=== PATIENT | male | born 1980 | race Caucasian/White ===

== ENCOUNTER 2016-11-12 20:42 | Emergency (ER) | payer MEDICARE ==
[2016-11-12] MEDS ORDERED: HYDROcodone/Acetaminophen 5/325 mg Tablet ONE (21:34)
[2016-11-12] MEDS ORDERED: Amoxicillin/Potassium Clav 875 MG TAB ONE (21:37)
--- NOTE | 2016-11-12 22:02 | PICIS ---
[facility] EMERGENCY RECORD TRIAGE (20:58 BHAS) PATIENT: NAME: Keyon Wang, AGE: 36, GENDER: male, : SatApr 07, 1980, TIME OF GREET: SatNov 12, 2016 20:43, PREFERRED LANGUAGE: Hungarian, RACE: WHITE, ETHNICITY: Not or , ECODE BILLING MAP: [facility] ER, SSN: [id number], Zip Code: [address], KG WEIGHT: [phone], PHONE: , , , PERSON ID: [id number], PCP: Garrett Driscoll, /Remi. (20:58 AS) TRIAGE NOTES: Facial/head pain x 1 week. Started augementin today for sinus infection. (20:58 BHAS) COMPLAINT: BOTH SIDES FACIAL PAIN,1 WK,. (20:58 BHAS) ADMISSION: URGENCY: 4 Non Urgent, ADMISSION SOURCE: Home, TRANSPORT: Walk-in, BED: ER *TR1. (20:58 BHAS) PROVIDERS: TRIAGE NURSE: Kumar Garnica RN. (20:58 BHAS) VITAL SIGNS: BP 135/84, Pulse 82, Resp 18, (Non-Labored), Temp 98.4, (Oral), Pain 10, O2 Sat 99, on Room Air, Time 11/12/2016 20:57. (20:57 BHAS) PREVIOUS VISIT ALLERGIES: No Known Drug Allergies. (20:58 BHAS) KNOWN ALLERGIES No Known Drug Allergies CURRENT MEDICATIONS No recorded medications VITAL SIGNS (20:57 BHAS) VITAL SIGNS: BP: 135/84, Pulse: 82, Resp: 18 (Non-Labored), Temp: 98.4 (Oral), Pain: 10, O2 sat: 99 on Room Air, Time: 11/12/2016 20:57. NURSING ASSESSMENT: HEADACHE (21:00 BHAS) CONSTITUTIONAL: Patient arrives ambulatory, Gait steady, History obtained from patient, Patient appears, in distress due to pain, Patient cooperative, Patient alert, Oriented to person, place and time, Skin warm, Skin dry, Skin normal in color, Mucous membranes pink, Mucous membranes moist, Patient is well-groomed, Patient complains of Face; Head pain, Pt c/o bilateral facial pain and VASQUEZ x 1 week that has not improved. Pt states that he was recently diagnosed with sinusitis and was given augementin yesterday; just started it today. Pt denies blurry vision. No one sided weakness. PAIN: aching pain, to the face, to the left parietal region, to the right parietal region, Onset of pain 11/05/2016, on a scale 0-10 patient rates pain as 10. HEADACHE: not associated with diplopia, no associated nausea, no associated vomiting. NEURO: Pupils equally round and reactive to light, Able to close eyes, Face symmetrical, Speech normal, no ptosis, no nystagmus, no visual changes, no facial droop, no facial numbness, no swelling, no paresthesias, GCS:, Eye opening: (4) - Spontaneous, Verbal: (5) - Oriented/conversive, Motor: (6) - Obeys commands/Spontaneous, GCS &a-1R&a+25V*p+0X*s3824C*c152B*c15G*c2P*p-0X&a-25V&a+1RName: Keyon Wang : M36 MedRec: [id number] AcctNum: [id number] Prepared: gavino Nov 13, 2016 00:09 by Interface Page 1 of 5 pMD [facility] EMERGENCY RECORD Total: 15, Hand grasps equal, Upper extremity strength strong, Lower extremity strength strong, no associated dizziness present, no associated fever, no associated memory loss, no associated loss of consciousness, no associated motor ability changes, no associated nausea. ENT: Ear assessment findings include ear normal to inspection, Nasal assessment findings include nose normal to inspection, Sinuses normal, Nasal mucosa normal, Mouth and throat assessment findings include mouth inspection normal, Uvula normal, Tonsils normal, Mucous membranes pink, and moist, Able to swallow, Speech normal, no associated fever, Associated with headache, for one week. SAFETY: Side rails up, Cart/Stretcher in lowest position, Family at bedside, Call light within reach, Hospital ID band on. NURSING PROCEDURE: DISCHARGE NOTE (21:45 BHAS) DISCHARGE: Patient discharged to home, ambulating without assistance, family driving, accompanied by other family member, Summary of Care printed/ provided, Transition record given to patient, Discharge instructions given to patient, Simple or moderate discharge teaching performed, by RENE Heath, Prescriptions given and instructions on side effects given, Above person(s) verbalized understanding of discharge instructions and follow-up care, Patient discharged by, RENE Heath, Patient treated and evaluated by physician. BELONGINGS: Belongings and valuables with patient upon arrival to the Emergency Department include:, Belongings and valuables with patient at time of discharge include:, Belongings remain with patient, Valuables remain with patient. NOTES: Notes: Pt's family member at bedside to drive patient home from ER due to pt receiving [place]. SAFETY: Side rails up, Cart/Stretcher in lowest position, Family at bedside, Call light within reach, Hospital ID band on. MEDICATION ADMINISTRATION SUMMARY Drug Name: [place], Dose Ordered: 5-325 mg, Route: Oral, Status: Given, Time: 21:43 11/12/2016, Drug Name: Augmentin, Dose Ordered: 875-125 mg, Route: Oral, Status: Given, Time: 21:43 11/12/2016, Detailed record available in Medication Service section. MEDICATION SERVICE (21:43 PMYE) Augmentin: Order: Augmentin (amoxicillin trihydrate/potassium clavulanate) - Dose: 875-125 mg : Oral Ordered by: Cipriano Bryant DO Entered by: Cipriano Bryant DO SatNov 12, 2016 21:33 , Acknowledged by: Kumar Garnica RN SatNov 12, 2016 21:35 Documented as given by: Kumar Garnica RN SatNov 12, 2016 21:43 Patient, Medication, Dose, Route and Time verified prior to administration. &a-1R&a+25V*p+0X*y2916U*c152B*c15G*c2P*p-0X&a-25V&a+1RName: Keyon Wang : M36 MedRec: [id number] AcctNum: [id number] Prepared: SatNov 13, 2016 00:09 by Interface Page 2 of 5 pMD [facility] EMERGENCY RECORD Verbal order read back and verified, Amount given: 1 tab, Site: Medication administered P.O., Correct patient, time, route, dose and medication confirmed prior to administration, Patient advised of actions and side-effects prior to administration, Allergies confirmed and medications reviewed prior to administration, Patient tolerated procedure well, Patient in position of comfort, Side rails up, Cart in lowest position, Family at bedside. [place]: Order: [place] (hydrocodone bitartrate/acetaminophen) - Dose: 5-325 mg : Oral Schedule: Now Ordered by: Cipriano Bryant DO Entered by: Cipriano Bryant DO SatNov 12, 2016 21:32 , Acknowledged by: Kumar Garnica RN SatNov 12, 2016 21:33 Documented as given by: Kumar Garnica RN SatNov 12, 2016 21:43 Patient, Medication, Dose, Route and Time verified prior to administration. Verbal order read back and verified, Amount given: 1 tab, Site: Medication administered P.O., Patient appears Awake and alert- acceptable, Correct patient, time, route, dose and medication confirmed prior to administration, Patient advised of actions and side-effects prior to administration, Allergies confirmed and medications reviewed prior to administration, Patient tolerated procedure well, Patient in position of comfort, Side rails up, Cart in lowest position, Family at bedside. HPI GENERAL (SatNov 13, 2016 00:00 PMYE) CHIEF COMPLAINT: Patient presents for evaluation of Facial Pain. HISTORIAN: History provided by patient. MECHANISM OF INJURY: none. LOCATION: left maxillary. QUALITY: Pain is dull in nature. SEVERITY: Maximum severity of symptoms moderate, Currently symptoms are mild, 36 y/o male w/ hx of recent viral illness presents w/ worsening maxillary sinus swelling and pain. TIME COURSE: Gradual onset of symptoms, Symptoms are worsening. ROS (SatNov 13, 2016 00:01 PMYE) CONSTITUTIONAL: Negative constitutional review of systems, Historian denies chills, denies fatigue, denies fever. EYES: Negative eye review of systems, Historian denies eye pain, denies eye redness. ENT: Negative ears, nose, throat review of systems, Historian denies dysphasia, denies otalgia, denies sore throat. + sinus pain. CARDIOVASCULAR: Negative cardiovascular review of systems, Historian denies chest pain, denies dyspnea on exertion, denies syncope. RESPIRATORY: Negative respiratory review of systems, Historian &a-1R&a+25V*p+0X*x5536O*c152B*c15G*c2P*p-0X&a-25V&a+1RName: Keyon Wang : M36 MedRec: [id number] AcctNum: [id number] Prepared: SatNov 13, 2016 00:09 by Interface Page 3 of 5 pMD [facility] EMERGENCY RECORD denies cough, denies shortness of breath, denies wheezing. GI: Negative gastrointestinal review of systems, Historian denies abdominal pain, denies nausea, denies vomiting. MUSCULOSKELETAL: Negative musculoskeletal review of systems, Historian denies back pain, denies neck pain. SKIN: Negative skin review of systems, Historian denies rash. NEUROLOGIC: Negative neurologic review of systems, Historian denies confusion, denies headache, denies paresthesias. PSYCHIATRIC: Negative psychiatric review of systems, Historian denies alcohol abuse, denies drug abuse, denies homicidal ideation, denies suicidal ideation. PHYSICAL EXAM (SatNov 13, 2016 00:01 PMYE) CONSTITUTIONAL: Vital signs reviewed, Patient afebrile, Pulse normal, Blood pressure normal, Respiratory rate normal. HEAD: Head exam normal, Head exam included findings of head atraumatic, normocephalic. EYES: Eye exam normal, Eye exam included findings of eyelids normal to inspection, Pupils equally round and reactive to light, Extraocular muscles intact. ENT: ENT exam normal, Pharynx exam normal, Uvula exam normal, Tonsil exam normal, palpatory tenderness to maxillary sinus on left. NECK: Neck exam normal, Neck exam included findings of normal range of motion, Trachea midline. RESPIRATORY CHEST: Respiratory and chest exam normal, No wheezing, No rales, No rhonchi. CARDIOVASCULAR: Cardiovascular assessment normal, Cardiovascular exam included findings of heart rate regular rate and rhythm, Heart sounds normal. ABDOMEN MALE: Abdominal exam normal, Abdominal exam included findings of abdomen nontender, Bowel sounds normal. BACK: Back exam normal. NEURO: Neuro exam normal, Neuro exam findings include patient oriented to person, place and time, [place] coma scale 15, Speech normal. SKIN: Skin exam included findings of skin warm, dry, and normal in color. PSYCHIATRIC: Psychiatric exam included findings of patient oriented to person place and time, Normal affect. EVENTS TRANSFER: Triage to Emergency Emergency Room *TR1. (SatNov 12, 2016 20:58 BHAS) Removed from Emergency Emergency Room *TR1. (21:46 BHAS) DOCTOR NOTES (SatNov 13, 2016 00:03 PMYE) TEXT: HPI and PE consistent w/ sinusitis. Tx w/ Augmentin and PRN pain meds. Will f/u w/ PCP. PROBLEM LIST No recorded problems &a-1R&a+25V*p+0X*c4498C*c152B*c15G*c2P*p-0X&a-25V&a+1RName: Keyon Wang : M36 MedRec: [id number] AcctNum: [id number] Prepared: SatNov 13, 2016 00:09 by Interface Page 4 of 5 pMD [facility] EMERGENCY RECORD DIAGNOSIS (21:29 PMYE) FINAL: PRIMARY: ACUTE SINUSITIS UNSPECIFIED. DISPOSITION PATIENT: Disposition Type: Discharge, Disposition: *Discharge Home. (21:29 PMYE) Disposition Transport: Designated Asic Engineer, Condition: Good, Patient left the department. (21:46 [facility]) INSTRUCTION (21:30 PMYE) DISCHARGE: SINUSITIS, ABX TX. FOLLOWUP: [facility], /[facility], [address] [place] [id number], , Follow up with Primary Care Physician in 1-2 days. SPECIAL: Follow-up with your PCP. PRESCRIPTION (21:29 PMYE) Augmentin: TABLET : 875 mg-125 mg : ORAL : Quantity: 875-125 Unit: mg Route: ORAL Schedule: 2 times a day (before meals) Dispense: 14 Unit: tab(s) May substitute. Refills: No Refills . NOTES: No Refills. IMAGING (22:19 [facility]) *DISCHARGE INSTRUCTIONS RECEIPT: Image captured from scanner. WRITTEN RX: Image captured from scanner. *SUPPLY CHARGE SHEET: Image captured from scanner. ADMIN (SatNov 13, 2016 00:03 PMYE) DIGITAL SIGNATURE: DO Bryant Paul. Bailey: GENNA=RENE Garnica, Kumar JOHNSTON=RENE Augustine, Monse PMYE=DO Bryant Paul &a-1R&a+25V*p+0X*m7913C*c152B*c15G*c2P*p-0X&a-25V&a+1RName: Keyon Wang : M36 MedRec: [id number] AcctNum: [id number] Prepared: Saeid Nov 13, 2016 00:09 by Interface Page 5 of 5 pMD MTDD
--- NOTE | 2016-11-12 22:02 | ERRECORD ---
[facility] EMERGENCY RECORD HPI GENERAL (SatNov 13, 2016 00:00 PMYE) CHIEF COMPLAINT: Patient presents for evaluation of Facial Pain. HISTORIAN: History provided by patient. MECHANISM OF INJURY: none. LOCATION: left maxillary. QUALITY: Pain is dull in nature. SEVERITY: Maximum severity of symptoms moderate, Currently symptoms are mild, 36 y/o male w/ hx of recent viral illness presents w/ worsening maxillary sinus swelling and pain. TIME COURSE: Gradual onset of symptoms, Symptoms are worsening. ROS (SatNov 13, 2016 00:01 PMYE) CONSTITUTIONAL: Negative constitutional review of systems, Historian denies chills, denies fatigue, denies fever. EYES: Negative eye review of systems, Historian denies eye pain, denies eye redness. ENT: Negative ears, nose, throat review of systems, Historian denies dysphasia, denies otalgia, denies sore throat. + sinus pain. CARDIOVASCULAR: Negative cardiovascular review of systems, Historian denies chest pain, denies dyspnea on exertion, denies syncope. RESPIRATORY: Negative respiratory review of systems, Historian denies cough, denies shortness of breath, denies wheezing. GI: Negative gastrointestinal review of systems, Historian denies abdominal pain, denies nausea, denies vomiting. MUSCULOSKELETAL: Negative musculoskeletal review of systems, Historian denies back pain, denies neck pain. SKIN: Negative skin review of systems, Historian denies rash. NEUROLOGIC: Negative neurologic review of systems, Historian denies confusion, denies headache, denies paresthesias. PSYCHIATRIC: Negative psychiatric review of systems, Historian denies alcohol abuse, denies drug abuse, denies homicidal ideation, denies suicidal ideation. KNOWN ALLERGIES No Known Drug Allergies CURRENT MEDICATIONS No recorded medications VITAL SIGNS (20:[address] [facility]) VITAL SIGNS: BP: 135/84, Pulse: 82, Resp: 18 (Non-Labored), Temp: 98.4 (Oral), Pain: 10, O2 sat: 99 on Room Air, Time: 11/12/2016 20:57. PHYSICAL EXAM (SatNov 13, 2016 00:01 PMYE) CONSTITUTIONAL: Vital signs reviewed, Patient afebrile, Pulse normal, Blood pressure normal, Respiratory rate normal. &a-1R&a+25V*p+0X*v4510B*c152B*c15G*c2P*p-0X&a-25V&a+1RName: Keyon Wang : M36 MedRec: [id number] AcctNum: [id number] Prepared: SatNov 13, 2016 00:09 by Interface Page 1 of 3 pMD [facility] EMERGENCY RECORD HEAD: Head exam normal, Head exam included findings of head atraumatic, normocephalic. EYES: Eye exam normal, Eye exam included findings of eyelids normal to inspection, Pupils equally round and reactive to light, Extraocular muscles intact. ENT: ENT exam normal, Pharynx exam normal, Uvula exam normal, Tonsil exam normal, palpatory tenderness to maxillary sinus on left. NECK: Neck exam normal, Neck exam included findings of normal range of motion, Trachea midline. RESPIRATORY CHEST: Respiratory and chest exam normal, No wheezing, No rales, No rhonchi. CARDIOVASCULAR: Cardiovascular assessment normal, Cardiovascular exam included findings of heart rate regular rate and rhythm, Heart sounds normal. ABDOMEN MALE: Abdominal exam normal, Abdominal exam included findings of abdomen nontender, Bowel sounds normal. BACK: Back exam normal. NEURO: Neuro exam normal, Neuro exam findings include patient oriented to person, place and time, [place] coma scale 15, Speech normal. SKIN: Skin exam included findings of skin warm, dry, and normal in color. PSYCHIATRIC: Psychiatric exam included findings of patient oriented to person place and time, Normal affect. MEDICATION ADMINISTRATION SUMMARY Drug Name: [place], Dose Ordered: 5-325 mg, Route: Oral, Status: Given, Time: 21:43 11/12/2016, Drug Name: Augmentin, Dose Ordered: 875-125 mg, Route: Oral, Status: Given, Time: 21:43 11/12/2016, Detailed record available in Medication Service section. DOCTOR NOTES (SatNov 13, 2016 00:03 PMYE) TEXT: HPI and PE consistent w/ sinusitis. Tx w/ Augmentin and PRN pain meds. Will f/u w/ PCP. PROBLEM LIST No recorded problems DIAGNOSIS (21:29 PMYE) FINAL: PRIMARY: ACUTE SINUSITIS UNSPECIFIED. PRESCRIPTION (21:29 PMYE) Augmentin: TABLET : 875 mg-125 mg : ORAL : Quantity: 875-125 Unit: mg Route: ORAL Schedule: 2 times a day (before meals) Dispense: 14 Unit: tab(s) May substitute. Refills: No Refills . NOTES: No Refills. DISPOSITION &a-1R&a+25V*p+0X*r5551C*c152B*c15G*c2P*p-0X&a-25V&a+1RName: Keyon Wang : [facility] MedRec: [id number] AcctNum: [id number] Prepared: SatNov 13, 2016 00:09 by Interface Page 2 of 3 pMD [facility] EMERGENCY RECORD PATIENT: Disposition Type: Discharge, Disposition: *Discharge Home. (21:29 PMYE) Disposition Transport: Designated I O Psychologist, Condition: Good, Patient left the department. (21:[address] [facility]) Bailey: BHAS=RENE Garnica, Kumar PMYE=DO Bryant Paul &a-1R&a+25V*p+0X*p6018D*c152B*c15G*c2P*p-0X&a-25V&a+1RName: Keyon Wang : 6 MedRec: [id number] AcctNum: [id number] Prepared: SatNov 13, 2016 00:09 by Interface Page 3 of 3 pMD MTDD
== END 2016-11-12 21:45 | disposition home or self-care (01) ==
LOC: NAV ERS 20:42
DX: J01.90 Acute sinusitis, unspecified (principal)
CPT/HCPCS: 99283

== ENCOUNTER 2017-01-04 16:16 | Emergency (ER) | payer MEDICARE ==
[2017-01-04] MEDS ORDERED: Fluorescein Opthalmic Strip ONE (16:29)
[2017-01-04] MEDS ORDERED: Tetracaine HCl 0.5% Ophth Soln 2 ML Bottle ONE (16:29)
== END 2017-01-04 17:14 | disposition home or self-care (01) ==
LOC: NAV ERS 16:16
DX: T15.02XA Foreign body in cornea, left eye, initial encounter (principal); F17.210 Nicotine dependence, cigarettes, uncomplicated
CPT/HCPCS: 65205; 99283

== ENCOUNTER 2017-05-13 09:55 | Emergency (ER) | payer MEDICARE ==
[2017-05-13] MEDS ORDERED: Acetaminophen 500 MG TAB ONE (11:10)
[2017-05-13] MEDS ORDERED: Sodium Chloride 0.9% 1,000 ML ONE (11:11)
[2017-05-13] MEDS ORDERED: diphenhydrAMINE HCl 50 MG/ML 1 ML VIAL ONE (11:11)
[2017-05-13] MEDS ORDERED: Ketorolac Tromethamine 30 MG/ML VIAL ONE (11:12)
[2017-05-13] MEDS ORDERED: Prochlorperazine 10 MG/2 ML VIAL ONE (11:13)
[2017-05-13 11:16] LABS: Blood, Urine Negative (Negative); Clarity Clear (Clear); Glucose, Urine (Dipstick) Negative (Negative); Leukocyte Negative (Negative); Nitrite Negative (Negative); Protein, Urine (Dipstick) Negative (Neg-Trace); Specific Gravity, Urine 1.025 (1.005-1.030); pH, Urine 6.5 (5.0-9.0)
[2017-05-13 11:17] LABS: #Basophils 0.1 thou/uL (0.0-0.2); #Eosinphils 0.2 thou/uL (0.0-0.7); #Lymphocytes 1.7 thou/uL (1.20-3.40); #Monocytes 0.4 thou/uL (0.11-0.59); #Neutrophils 5.2 thou/uL (1.40-6.50); %Basophils 1.1 % (0.0-1.0); %Eosinophils 2.7 % (0.0-10.0); %Lymphocytes 22.4 % (21.0-51.0); %Monocytes 5.2 % (0.0-10.0); %Neutrophils 68.6 % (42.0-75.0); Hemoglobin 15.5 g/dL (14.0-18.0); Mean Corpuscular HGB CONC 32.3 g/dL (32.0-36.0); Mean Corpuscular Hemoglobin 29.5 pg (27.0-31.0); Mean Corpuscular Volume 91.1 fl (80.0-94.0); Mean Platelet Volume 9.3 fL (7.4-10.4); Platelet Count 132 thou/uL (130-400); RBC Distribution Width 13.3 % (11.5-14.5); Red Blood Cell (RBC) Count 5.25 mill/uL (4.70-6.10); White Blood Cell (WBC) Count 7.5 thou/uL (4.8-10.8)
[2017-05-13 11:20] LABS: Bilirubin Negative (Negative); Icto Negative (Negative)
[2017-05-13 11:27] LABS: Amphetamine Not Detected (NotDetected); Barbiturates Screen Not Detected (NotDetected); Benzodiazepine Screen Not Detected (NotDetected); Cocaine Metabolite Screen Not Detected (NotDetected); Medtox Control Line Valid? VALID (VALID); Methadone Not Detected (NotDetected); Methamphetamine Not Detected (NotDetected); Opiate Screen Not Detected (NotDetected); Oxycodone Screen Not Detected (NotDetected); Phencyclidine (PCP) Not Detected (NotDetected); THC/Cannabinoid Screen Not Detected (NotDetected); Tricyclic Screen Not Detected (NotDetected)
[2017-05-13 11:34] LABS: ALT (SGPT) 16 U/L (8-55); AST (SGOT) 20 U/L (5-34); Albumin 4.1 g/dL (3.5-5.0); Alkaline Phosphatase 82 U/L (40-150); Anion Gap 15 mmol/L (10-20); BUN (Urea Nitrogen) 11 mg/dL (8.9-20.6); Bilirubin, Total 0.9 mg/dL (0.2-1.2); Calc. Creatinine Clearance 0 mL/min (70-130); Calcium 9.4 mg/dL (7.8-10.44); Carbon Dioxide 24 mmol/L (22-29); Chloride 106 mmol/L (98-107); Estimated GFR-MDRD Greater than 90; Globulin 3.1 g/dL (2.4-3.5); Glucose 87 mg/dL (70-105); Magnesium 2.2 mg/dL (1.6-2.6); Potassium 3.9 mmol/L (3.5-5.1); Protein, Total 7.2 g/dL (6.0-8.3); Sodium 141 mmol/L (136-145)
[2017-05-13 11:35] LABS: Troponin I 0.012 ng/mL (< 0.028)
--- NOTE | 2017-05-13 12:25 | CT ---
CT HEAD NONCONTRAST DATE: 05/13/17 HISTORY: Headache. COMPARISON: 08/01/14. FINDINGS: There is no evidence of acute intracranial hemorrhage or infarct. The ventricles appear normal in si ze, shape, and position. There is no mass effect or shift of midline structures. Mild mucosal thicke jennifer is noted within the ethmoid air cells. IMPRESSION: No acute intracranial abnormalities are demonstrated on noncontrast CT head. POS: [facility]
[2017-05-13] MEDS ORDERED: Lorazepam 2 MG/ML VIAL ONE (12:28)
== END 2017-05-13 12:59 | disposition home or self-care (01) ==
LOC: NAV ERS 09:55
DX: M62.81 Muscle weakness (generalized) (principal); R51 Headache; F17.210 Nicotine dependence, cigarettes, uncomplicated
CPT/HCPCS: 36415; 70450; 80053; 80306; 81003; 82553; 83735; 84443; 84484; 85025; 93005; 96361; 96374; 96375; J0780; J1200; J1885; J2060; J7050

== ENCOUNTER 2018-02-10 19:14 | Emergency (ER) | payer MEDICARE ==
[2018-02-10] MEDS ORDERED: Ibuprofen 800 MG TAB ONE (20:06)
[2018-02-10] MEDS ORDERED: Clindamycin 150 MG CAP ONE (20:06)
== END 2018-02-10 20:14 | disposition home or self-care (01) ==
LOC: NAV ERS 19:14
DX: H60.22 Malignant otitis externa, left ear (principal); K04.7 Periapical abscess without sinus; F17.210 Nicotine dependence, cigarettes, uncomplicated
CPT/HCPCS: 99282

== ENCOUNTER 2018-08-12 08:13 | Emergency (ER) | payer MEDICARE, OTHER | END 2018-08-12 08:55 | disposition home or self-care (01) | LOC: NAV ERS 08:13 | DX: B34.9 Viral infection, unspecified (principal); F17.210 Nicotine dependence, cigarettes, uncomplicated | CPT/HCPCS: 99283 ==

== ENCOUNTER 2019-01-17 21:32 | Emergency (ER) | payer OTHER, SELFPAY ==
--- NOTE | 2019-01-17 22:03 | RAD ---
FLeft knee: 4 views INDICATIONS: Knee pain FINDINGS: There are moderate changes. Mild spurring from the femoral condyles. No joint effusion. No fracture or acute abnormality. IMPRESSION: Mild degenerative change
[2019-01-17] MEDS ORDERED: Ibuprofen 200 MG TAB ONE (22:20)
== END 2019-01-17 22:35 | disposition home or self-care (01) ==
LOC: NAV ERS 21:32
DX: M25.462 Effusion, left knee (principal); F17.210 Nicotine dependence, cigarettes, uncomplicated

== ENCOUNTER 2020-02-28 21:54 | Emergency (ER) | payer OTHER, SELFPAY ==
[~2020-02-28 21:54] MED LIST: Iopamidol 370 76% 100 ML VIAL ONE
[2020-02-28 22:26] LABS: #Basophils 0.1 thou/uL (0.0-0.2); #Eosinphils 0.2 thou/uL (0.0-0.7); #Lymphocytes 2.5 thou/uL (1.20-3.40); #Monocytes 0.5 thou/uL (0.11-0.59); #Neutrophils 6.5 thou/uL (1.40-6.50); %Basophils 0.8 % (0.0-1.0); %Eosinophils 2.2 % (0.0-10.0); %Lymphocytes 25.6 % (21.0-51.0); %Monocytes 5.4 % (0.0-10.0); %Neutrophils 66.1 % (42.0-75.0); Hemoglobin 13.4 g/dL (14.0-18.0); Mean Corpuscular HGB CONC 31.7 g/dL (32.0-36.0); Mean Corpuscular Hemoglobin 28.9 pg (27.0-31.0); Mean Corpuscular Volume 91.2 fL (78.0-98.0); Mean Platelet Volume 8.7 fL (7.4-10.4); Platelet Count 164 thou/uL (130-400); RBC Distribution Width 14.8 % (11.5-14.5); Red Blood Cell (RBC) Count 4.65 mill/uL (4.70-6.10); White Blood Cell (WBC) Count 9.8 thou/uL (4.8-10.8)
[2020-02-28 22:48] LABS: ALT (SGPT) 25 U/L (8-55); AST (SGOT) 19 U/L (5-34); Albumin 3.9 g/dL (3.5-5.0); Alkaline Phosphatase 103 U/L (40-110); Anion Gap 14 mmol/L (10-20); BUN (Urea Nitrogen) 13 mg/dL (8.9-20.6); Bilirubin, Total 0.2 mg/dL (0.2-1.2); CK (CPK) 148 U/L (30-200); Calc. Creatinine Clearance 0 mL/min (70-130); Calcium 9.1 mg/dL (7.8-10.44); Carbon Dioxide 25 mmol/L (22-29); Chloride 106 mmol/L (98-107); Estimated GFR-MDRD 87; Globulin 3.1 g/dL (2.4-3.5); Glucose 89 mg/dL (70-105); Lipase 20 U/L (8-78); Potassium 4.4 mmol/L (3.5-5.1); Sodium 141 mmol/L (136-145)
--- NOTE | 2020-02-28 23:18 | CT ---
CT arteriogram chest with IV contrast and 3-D imaging CT arteriogram abdomen with IV contrast and 3-D imaging CT arteriogram pelvis with IV contrast and 3-D imaging HISTORY: Chest and abdomen pain. Radiation to the back. FINDINGS: There is good contrast opacification of the aorta with normal branching of the great vessel s at the aortic arch. No evidence of dissection, leak, or aneurysm. Visceral arteries of the abdomen are patent. Postoperative changes of the stomach of the appearance of prior bariatric surgery. Small hiatal herni a. Projecting superiorly from the left kidney is an exophytic well-circumscribed predominantly low densi ty mass containing internal heterogeneous hyperdensity with the appearance of contrast enhancement. It measures up to 8.8 cm x 7.6 cm x 7.4 cm. No retroperitoneal adenopathy is evident. Hyperdense material layers within the dependent portion of the gallbladder lumen. There are widespread very subtle patchy areas of predominantly groundglass opacity involving each mis g. No pleural fluid or mediastinal adenopathy. IMPRESSION : No evidence of aortic aneurysm or acute vascular abnormality. Large complex partially enhancing exophytic mass at the superior pole of the left kidney. Please cons ider outpatient urologic evaluation. Patchy subtle peripheral groundglass opacities throughout each lung. Clinical correlation regarding o ther signs and symptoms of the possibility of multifocal viral pneumonitis is required. Biliary sludge within the gallbladder is evidence of chronic gallbladder dyskinesis. Postoperative changes of the stomach.
[2020-02-29 18:10] LABS: SARS-CoV-2 MS2 Positive; SARS-CoV-2 N Gene Negative; SARS-CoV-2 S Gene Negative; SARS-CoV-2 orf1ab Negative
== END 2020-02-29 00:10 | disposition home or self-care (01) ==
LOC: NAV ERS 21:54
DX: M54.6 Pain in thoracic spine (principal); N28.89 Other specified disorders of kidney and ureter; Z20.828 Contact with and (suspected) exposure to other viral communicable diseases; F17.210 Nicotine dependence, cigarettes, uncomplicated; E66.9 Obesity, unspecified
CPT/HCPCS: 36415; 71275; 72191; 74175; 80053; 82550; 83690; 84484; 85025; 87635; 93005; Q9967; U0003

== ENCOUNTER 2020-09-27 12:42 | Emergency (ER) | payer OTHER, SELFPAY | END 2020-09-27 13:30 | disposition home or self-care (01) | LOC: NAV ERS 12:42 | DX: H81.11 Benign paroxysmal vertigo, right ear (principal); H65.91 Unspecified nonsuppurative otitis media, right ear; F17.210 Nicotine dependence, cigarettes, uncomplicated ==

== ENCOUNTER 2020-11-27 18:03 | Emergency (ER) | payer SELFPAY ==
[2020-11-27] MEDS ORDERED: Cyclobenzaprine 10 MG TAB ONE (18:46)
[2020-11-27] MEDS ORDERED: Sodium Chloride 0.9% 1,000 ML ONE (18:46)
[2020-11-27] MEDS ORDERED: Ketorolac Tromethamine 30 MG/ML VIAL ONE (18:46)
[2020-11-27 19:04] LABS: #Basophils 0.1 thou/uL (0.0-0.2); #Eosinphils 0.2 thou/uL (0.0-0.7); #Lymphocytes 2.1 thou/uL (1.20-3.40); #Monocytes 0.5 thou/uL (0.11-0.59); %Basophils 1.2 % (0.0-1.0); %Eosinophils 2.9 % (0.0-10.0); %Lymphocytes 26.9 % (21.0-51.0); %Monocytes 5.9 % (0.0-10.0); %Neutrophils 63.1 % (42.0-75.0); Mean Corpuscular HGB CONC 32.3 g/dL (32.0-36.0); Mean Corpuscular Hemoglobin 28.2 pg (27.0-31.0); Mean Corpuscular Volume 87.3 fL (78.0-98.0); Mean Platelet Volume 8.9 fL (7.4-10.4); Platelet Count 165 thou/uL (130-400); RBC Distribution Width 14.8 % (11.5-14.5); Red Blood Cell (RBC) Count 4.97 mill/uL (4.70-6.10); White Blood Cell (WBC) Count 7.9 thou/uL (4.8-10.8)
[2020-11-27 19:08] LABS: ALT (SGPT) 13 U/L (8-55); AST (SGOT) 15 U/L (5-34); Albumin 4.1 g/dL (3.5-5.0); Alkaline Phosphatase 86 U/L (40-110); Anion Gap 15 mmol/L (10-20); BUN (Urea Nitrogen) 16 mg/dL (8.9-20.6); Bilirubin, Total 0.3 mg/dL (0.2-1.2); Calc. Creatinine Clearance 0 mL/min (70-130); Calcium 8.7 mg/dL (7.8-10.44); Carbon Dioxide 24 mmol/L (22-29); Chloride 104 mmol/L (98-107); Globulin 3.1 g/dL (2.4-3.5); Glucose 94 mg/dL (70-105); Protein, Total 7.2 g/dL (6.0-8.3); Sodium 139 mmol/L (136-145)
[2020-11-27 19:18] LABS: Bilirubin Negative (Negative); Blood, Urine Trace (Negative); Clarity Clear (Clear); Glucose, Urine (Dipstick) Negative (Negative); Ketone, Urine Negative (Negative); Leukocyte Negative (Negative); Nitrite Negative (Negative); Protein, Urine (Dipstick) Negative (Neg-Trace); Specific Gravity, Urine 1.025 (1.005-1.030); pH, Urine 6.5 (5.0-9.0)
[2020-11-27 19:19] LABS: Bacteria/HPF Rare-Few HPF (None Seen); RBC/HPF 0-3 HPF (0-3); WBC/HPF 0-3 HPF (0-3)
--- NOTE | 2020-11-27 19:26 | CT ---
CT ABDOMEN WITH CONTRAST CT PELVIS WITH CONTRAST: DATE: 11/27/2020 HISTORY: 40-year-old male with right mid-lower back pain. COMPARISON: 02/28/2020 TECHNIQUE: IV injection of iodinated contrast media: administered. Oral contrast media:Not administered FINDINGS: Bilateral L5 pars interarticularis defects, but no anterolisthesis at L5-S1. Lumbar vertebral body heights are maintained. Suture line along narrowed stomach. Small sliding hiatal hernia. Whereas previously there was moderate amount of hyperdense sludge in the gallbladder, currently there is only a tiny amount. No secondary signs of acute cholecystitis. Previously demonstrated large exophytic left renal upper pole tumor mass is no longer present Shallow postsurgical defect at upper pole cortex of left kidney. The rest the left kidney, and entire right kidney, abdominal aorta, liver, pancreas, adrenals, and sp tod, are normal. Empty urinary bladder. No colonic diverticulitis, small bowel dilation, ascites, pneumoperitoneum, or pleural effusion. Mild, faint groundglass changes at bilateral lung bases are very similar to 02/28/2020, are nonspecifi c, but do not represent COVID 19 pneumonia. Appendix not visualized. IMPRESSION: 1) no acute findings. 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 3) bilateral L5 spondylolysis without spondylolisthesis 4) high density gallbladder sludge versus gravel. 5) status post vertical sleeve gastrectomy.
== END 2020-11-27 20:31 | disposition home or self-care (01) ==
LOC: NAV ERS 18:03
DX: M54.6 Pain in thoracic spine (principal); F17.210 Nicotine dependence, cigarettes, uncomplicated; Z85.528 Personal history of other malignant neoplasm of kidney
CPT/HCPCS: 36415; 74177; 80053; 81003; 81015; 85025; 96374; J1885; J7050; Q9967

== ENCOUNTER 2020-12-26 13:51 | Emergency (ER) | payer SELFPAY ==
[2020-12-26 14:39] LABS: #Basophils 0.1 thou/uL (0.0-0.2); #Eosinphils 0.2 thou/uL (0.0-0.7); #Lymphocytes 2.1 thou/uL (1.20-3.40); #Monocytes 0.5 thou/uL (0.11-0.59); #Neutrophils 5.3 thou/uL (1.40-6.50); %Basophils 1.1 % (0.0-1.0); %Eosinophils 2.5 % (0.0-10.0); %Lymphocytes 25.8 % (21.0-51.0); %Neutrophils 64.6 % (42.0-75.0); Hemoglobin 13.9 g/dL (14.0-18.0); Mean Corpuscular HGB CONC 32.2 g/dL (32.0-36.0); Mean Corpuscular Hemoglobin 27.6 pg (27.0-31.0); Mean Corpuscular Volume 85.6 fL (78.0-98.0); Mean Platelet Volume 8.8 fL (7.4-10.4); Platelet Count 178 thou/uL (130-400); RBC Distribution Width 15.1 % (11.5-14.5); Red Blood Cell (RBC) Count 5.05 mill/uL (4.70-6.10); White Blood Cell (WBC) Count 8.2 thou/uL (4.8-10.8)
[2020-12-26 14:42] LABS: ALT (SGPT) 14 U/L (8-55); AST (SGOT) 24 U/L (5-34); Alkaline Phosphatase 85 U/L (40-110); Anion Gap 15 mmol/L (10-20); BUN (Urea Nitrogen) 12 mg/dL (8.9-20.6); Bilirubin, Total 0.4 mg/dL (0.2-1.2); Calc. Creatinine Clearance 0 mL/min (70-130); Carbon Dioxide 24 mmol/L (22-29); Chloride 105 mmol/L (98-107); Globulin 3.3 g/dL (2.4-3.5); Glucose 91 mg/dL (70-105); Potassium 4.6 mmol/L (3.5-5.1); Protein, Total 7.3 g/dL (6.0-8.3); Sodium 139 mmol/L (136-145)
== END 2020-12-26 15:20 | disposition home or self-care (01) ==
LOC: NAV ERS 13:51
DX: K43.2 Incisional hernia without obstruction or gangrene (principal); F17.210 Nicotine dependence, cigarettes, uncomplicated; Z71.6 Tobacco abuse counseling
CPT/HCPCS: 74177; 80053; 83605; 85025; 99406; Q9967

== ENCOUNTER 2022-11-14 19:57 | Emergency (ER) | payer BC ==
[2022-11-14] MEDS ORDERED: Dexamethasone 4 mg/ml Vial ONE (20:52)
[2022-11-14] MEDS ORDERED: Ketorolac Tromethamine 60 MG/2 ML VIAL ONE (20:52)
== END 2022-11-14 21:43 | disposition home or self-care (01) ==
LOC: NAV ERS 19:57
DX: J06.9 Acute upper respiratory infection, unspecified (principal); Z20.822 Contact with and (suspected) exposure to COVID-19; F17.210 Nicotine dependence, cigarettes, uncomplicated
CPT/HCPCS: 87081; 87430; 87804; 96372; 99283; J1100; J1885; U0003; U0005

== ENCOUNTER 2023-02-22 17:24 | Emergency (ER) | payer BC, SELFPAY | END 2023-02-22 18:11 | disposition home or self-care (01) | LOC: NAV ERS 17:24 | DX: B34.9 Viral infection, unspecified (principal); F17.220 Nicotine dependence, chewing tobacco, uncomplicated | CPT/HCPCS: 99283 ==

== ENCOUNTER 2023-08-20 14:56 | Emergency (ER) | payer OTHER, SELFPAY | END 2023-08-20 16:30 | disposition home or self-care (01) | LOC: NAV ERS 14:56 | DX: R05.9 Cough, unspecified (principal); B34.9 Viral infection, unspecified; F17.210 Nicotine dependence, cigarettes, uncomplicated | CPT/HCPCS: 99283 ==